=== PATIENT | male | born 1985 | race Two or more races ===

== ENCOUNTER 2018-11-03 07:23 | Emergency (ER) | payer MEDICAID, OTHER ==
[~2018-11-03] VITALS: Ht 182.9 cm; Wt 73.0 kg
[2018-11-03 09:37] LABS: CHLORIDE 106 mEq/L (98-107)
[2018-11-03] MEDS ORDERED: SODIUM CHLORIDE 0.9% 1,000 ML IV ONE (10:00)
[2018-11-03 10:52] VITALS: BP 127/72
[2018-11-03] MEDS ORDERED: IOHEXOL-300 100 ML BOTTLE ONE (11:04)
== END 2018-11-03 10:55 | disposition home or self-care (01) ==
LOC: ER 07:23
DX: R22.1 Localized swelling, mass and lump, neck (principal)
CPT/HCPCS: 36415; 70491; 80053; 99284; J7030; Q9967

== ENCOUNTER 2019-09-21 21:40 | Emergency (ER) | payer MEDICAID, OTHER ==
[~2019-09-21] VITALS: Ht 185.4 cm; Wt 77.0 kg
[2019-09-22 00:43] VITALS: BP 112/75
== END 2019-09-22 00:45 | disposition home or self-care (01) ==
LOC: ER 21:40
DX: S39.012A Strain of muscle, fascia and tendon of lower back, initial encounter (principal); S20.211A Contusion of right front wall of thorax, initial encounter; V49.59XA Passenger injured in collision with other motor vehicles in traffic accident, initial encounter; Y93.89 Activity, other specified; Y92.89 Other specified places as the place of occurrence of the external cause; Y99.8 Other external cause status; Z98.890 Other specified postprocedural states
CPT/HCPCS: 71101; 72100; 99284

== ENCOUNTER 2019-10-08 22:19 | Emergency (ER) | payer MEDICAID ==
[~2019-10-08] VITALS: Ht 182.9 cm; Wt 74.0 kg
[2019-10-08] MEDS ORDERED: FLUORESCEIN SODIUM 1MG/STRIP EACHEYE ONE (22:30)
[2019-10-08] MEDS ORDERED: TETRACAINE 0.5% OPHTH DROPS 4ML RIGHTEYE ONE (22:30)
[2019-10-08] MEDS ORDERED: IBUPROFEN 600MG TABLET PO ONE (22:30)
[2019-10-08 22:45] VITALS: BP 115/83
== END 2019-10-09 00:18 | disposition home or self-care (01) ==
LOC: ER 22:19
DX: H10.021 Other mucopurulent conjunctivitis, right eye (principal)
CPT/HCPCS: 99283

== ENCOUNTER 2022-10-18 14:15 | Emergency (ER) | payer MEDICAID ==
[~2022-10-18] VITALS: Ht 182.9 cm; Wt 80.0 kg
[2022-10-18] MEDS ORDERED: IBUPROFEN 600MG TABLET PO ONE (17:15)
[2022-10-18] MEDS ORDERED: LIDOCAINE 5% PATCH TOP SCH (17:15)
[2022-10-18] MEDS ORDERED: BACL20TA MT ×2 (17:32→17:33)
[2022-10-18] MEDS ORDERED: IBUP-2029 MT (17:32)
[2022-10-18 18:00] VITALS: BP 150/94
== END 2022-10-18 18:52 | disposition home or self-care (01) ==
LOC: ER 14:29
DX: S43.402A Unspecified sprain of left shoulder joint, initial encounter (principal); S09.90XA Unspecified injury of head, initial encounter; V49.59XA Passenger injured in collision with other motor vehicles in traffic accident, initial encounter; Y93.89 Activity, other specified; Y92.89 Other specified places as the place of occurrence of the external cause; Y99.8 Other external cause status; M54.2 Cervicalgia
CPT/HCPCS: 73030; 99284